=== PATIENT | male | born 1970 | race Caucasian/White ===

== ENCOUNTER 2020-06-08 02:36 | Outpatient (CLI) | payer BC, SELFPAY ==
[2020-06-08 18:24] LABS: SARS-CoV-2 RNA PCR Negative
== END 2020-06-08 02:37 | disposition home or self-care (01) ==
LOC: ANHCOVIDDT 02:37
PROVIDERS: PCP Physician Assistant; Visit Provider Internal Medicine Gastroenterology
DX: Z01.812 Encounter for preprocedural laboratory examination (principal); Z20.828 Contact with and (suspected) exposure to other viral communicable diseases
CPT/HCPCS: 87635; C9803; U0003

== ENCOUNTER 2020-06-22 00:59 | Outpatient (CLI) | payer BC, SELFPAY ==
[2020-06-22 18:39] LABS: SARS-CoV-2 RNA PCR Negative
== END 2020-06-22 01:00 | disposition home or self-care (01) ==
LOC: ANHCOVIDDT 00:59
PROVIDERS: PCP Physician Assistant; Visit Provider Internal Medicine Gastroenterology
DX: Z01.812 Encounter for preprocedural laboratory examination (principal); Z20.828 Contact with and (suspected) exposure to other viral communicable diseases
CPT/HCPCS: 87635; C9803; U0003

== ENCOUNTER 2020-06-24 01:25 | Day surgery (SDC) | payer BC, SELFPAY ==
[2020-06-03 11:48] VITALS: BMI 29.8
--- NOTE | 2020-06-09 14:18 | P.PNAN_ITS ---
Anes - Eval Pre Procedure Procedure: Operation Date: 06/10/20 08:30 Proposed Procedures p Colonoscopy - Sandro Myers MD Date/Time: 06/09/20 14:18 Pre Op Diagnosis: Positive Cologaurd Patient Data Age: 50 Gender: M Height: 1.7 m Weight: 86.36 kg Allergies Allergy/AdvReac Type Severity Reaction Status Date / Time No Known Allergies Allergy Verified 06/03/20 11:46 Home Medications Medication Instructions Recorded Confirmed Type acyclovir 5 % topical cream 1 applic TOPICAL .5XD PRN gm 03/15/20 06/03/20 Hist ory tadalafil 5 mg tablet 5 mg PO DAILY PRN 03/15/20 06/03/20 History ia-jd-RL-vit J-xlfqf-zqb-coQ10 1 cap PO DAILY 06/03/20 06/03/20 History [Daily Multivitamin] valacyclovir See Rx Instructions .ROUTE 06/03/20 06/03/20 History .COMPLEX PRN Patient hx anesthesia problems: none Family hx anesthesia problems: none PMFSH Past Medical History Medical History (Updated 06/09/20 @ 14:18 by Aylin Garner CRNA) Overweight Social History Social History Smoking packs per day: 1 Smoking cigarettes per day: 20.0 Years smoked: 20 Smoking pack-years: 20.00 Smoking status: Former smoker Tobacco type: cigarettes Second hand tobacco smoke exposure: No Smoking end date: 09/09/96 Alcohol intake: current Drinks per week: 0 Substance use: never Substance use type: does not use Spiritual care concerns: No Exam Day of Procedure 06/09/20 14:18
[2020-06-16 14:18] VITALS: BMI 30.4
[2020-06-24 09:47] VITALS: BP 163/86; PULSE 71; RESP 16; TEMP 36; O2SAT 100
[2020-06-24] MEDS: LACTATED RINGERS 1,000 ML 150 ML IV CONT (09:59)
--- NOTE | 2020-06-24 10:15 | WPDANESEPPF ---
Anes - Initial Pre Proc Eval Procedure: Operation Date: 06/24/20 11:00 Proposed Procedures p Colonoscopy - Sandro Myers MD Date/Time: 06/24/20 10:15 Surgeon: Sandro Myers MD Pre Op Diagnosis: Positive Cologaurd Patient Data Age: 50 Gender: M Height: 5 ft 7 in Weight: 89.1 kg Last Vital Signs Temp 96.8 F L 06/24/20 09:47 Pulse 71 06/24/20 09:47 Resp 16 06/24/20 09:47 BP 163/86 H 06/24/20 09:47 Pulse Ox 100 06/24/20 09:47 Allergies Allergy/AdvReac Type Severity Reaction Status Date / Time No Known Allergies Allergy Verified 06/24/20 09:42 Home Medications Medication Instructions Recorded Confirmed Type acyclovir 5 % topical cream 1 applic TOPICAL .5XD PRN gm 03/15/20 06/24/20 History tadalafil 5 mg tablet 5 mg PO DAILY PRN 03/15/20 06/03/20 History ei-in-VB-vit H-dbjdm-[id number]-coQ10 1 cap PO DAILY 06/03/20 06/03/20 History [Daily Multivitamin] valacyclovir See Rx Instructions .ROUTE 06/03/20 06/03/20 History .COMPLEX PRN amoxicillin 500 mg PO TID 06/16/20 06/16/20 History Patient hx anesthesia problems: none Family hx anesthesia problems: none PMFSH Past Medical History Medical History (Updated 06/09/20 @ 14:18 by Aylin Garner CRNA) Overweight Social History Social History Smoking packs per day: 1.5 Smoking cigarettes per day: 30.0 Years smoked: 20 Smoking pack-years: 30.00 Smoking status: Former smoker Tobacco type: cigarettes Second hand tobacco smoke exposure: No Smoking end date: 09/09/96 Alcohol intake: current Drinks per week: 0 Alcohol use details: 1 PER MONTH Substance use: never Substance use type: does not use Gender identity (if verbalized by the patient): Female Spiritual care concerns: No Anes - Eval Final PreProcedure Day of Procedure 06/24/20 10:15 Patient weight: overweight Heart: regular rate and rhythm Lungs: clear to auscultation Airway: Mallampati scale class II Neurological: alert and oriented Last oral intake: >/= 8 hours ASA classification: II Emergent: no Anesthetic plan: proceed Anesthesia type and monitoring: general GIVS and standard monitoring Informed Consent: The patient's anesthetic plan and its attendant risks and benefits were discussed with the patient/family/POA. Questions were solicited and answers provided to the satisfaction of the patient/family/POA.
--- NOTE | 2020-06-24 10:41 | WPDGICN ---
Assessment and Plan Assessment and plan (1) Positive colorectal cancer screening using Cologuard test: Code(s): R19.5 - Other fecal abnormalities Status: Acute Assessment and Plan: Plan is for screening colonoscopy. Further recommendations will be given after endoscopy. GI Consult Note Consult date/time: 06/24/20 10:41 HPI: Brad Garrett is a 50 year old male Seen in evaluation at the request of Dr. Danie Cárdenas and CARISSA Feldman. Patient has a positive screening cologuard test. He states that his current weight appetite bowel movements are normal. He denies abdominal pain he has had no bleeding. His family history is noncontributory. He presents today for colonoscopy. Review of Systems Review of Systems: All systems reviewed & are unremarkable except as noted in HPI and below PMFSH Past Medical History Medical History (Updated 06/24/20 @ 10:43 by Sandro Myers MD) Overweight Social History Social History Smoking packs per day: 1.5 Smoking cigarettes per day: 30.0 Years smoked: 20 Smoking pack-years: 30.00 Smoking status: Former smoker Tobacco type: cigarettes Second hand tobacco smoke exposure: No Smoking end date: 09/09/96 Alcohol intake: current Drinks per week: 0 Alcohol use details: 1 PER MONTH Substance use: never Substance use type: does not use Gender identity (if verbalized by the patient): Female Spiritual care concerns: No Meds Home Medications and Allergies Home Medications Medication Instructions Recorded Confirmed Type acyclovir 5 % topical cream 1 applic TOPICAL .5XD PRN gm 03/15/20 06/24/20 History tadalafil 5 mg tablet 5 mg PO DAILY PRN 03/15/20 06/03/20 History zt-ko-PZ-vit X-udvtt-oea-coQ10 1 cap PO DAILY 06/03/20 06/03/20 History [Daily Multivitamin] valacyclovir See Rx Instructions .ROUTE 06/03/20 06/03/20 History .COMPLEX PRN amoxicillin 500 mg PO TID 06/16/20 06/16/20 History Allergies Allergy/AdvReac Type Severity Reaction Status Date / Time No Known Allergies Allergy Verified 06/24/20 09:42 Vital Signs Vital Signs - 24 hr 06/24/20 09:47 Temperature 96.8 F L Pulse Rate 71 Respiratory Rate 16 Blood Pressure 163/86 H Pulse Oximetry 100 Exam Narrative: Exam Narrative: Physical exam reveals patient to be alert. Vital signs stable. HEENT exam unremarkable. Lungs are clear to auscultation and percussion. Heart is without murmur or extra sounds. Abdominal exam bowel sounds are present soft nontender with no organomegaly. Digital external rectal exam normal.
[2020-06-24 11:15] VITALS: BP 125/82; PULSE 76; RESP 18; O2SAT 94
[2020-06-24 11:25] VITALS: BP 127/90; PULSE 67; RESP 18; O2SAT 97
[2020-06-24 11:35] VITALS: BP 139/89; PULSE 62; RESP 18; O2SAT 97
== END 2020-06-24 12:07 | disposition home or self-care (01) ==
PROVIDERS: PCP Physician Assistant; Visit Provider Internal Medicine Gastroenterology
PROC: 0DJD8ZZ Inspection of Lower Intestinal Tract, Via Natural or Artificial Opening Endoscopic (ICD-10-PCS; CPT 45378; principal; 2020-06-24 11:00)
DX: Z12.11 Encounter for screening for malignant neoplasm of colon (principal); R19.5 Other fecal abnormalities; K64.8 Other hemorrhoids; Z87.891 Personal history of nicotine dependence
CPT/HCPCS: 45378; J2704; J7120

== ENCOUNTER 2024-07-02 10:50 | Outpatient (CLI) | payer BC, SELFPAY ==
--- NOTE | ~2024-07-02 | US_ITS ---
Anterior chest wall ULTRASOUND Ordering provider: Liang Carroll APRN History: . R22.2 - Localized swelling, mass and lump, trunk . Comparison: None. FINDINGS/impression: No definite masses seen. Reviewed, dictated and finalized at location A.
== END 2024-07-02 10:51 | disposition home or self-care (01) ==
LOC: MICIMG 10:51
PROVIDERS: PCP Nurse Practitioner; Visit Provider Nurse Practitioner
DX: R22.2 Localized swelling, mass and lump, trunk (principal)
CPT/HCPCS: 76604

== ENCOUNTER 2025-03-16 08:54 | Outpatient (CLI) | payer BC, SELFPAY ==
--- NOTE | 2025-03-31 13:01 | WPDHOLTEREM ---
Holter/Event Monitor Holter/Event Monitor Date of procedure: 03/31/25 Holter/Event Procedure: 3-7 Day Holter Monitor Indications: Palpitations Conclusion: 1. 3 days holter monitor on 03/16/25. 2. Predominant rhythm is atrial fibrillation at 52% burden. HR range 61-192 bpm with average 113 bpm. In sinus rhythm HR range 51-115 bpm with average at 64 bpm. 3. There are are rare premature supraventricular complexes, rare supraventricular couplets, and rare supraventricular triplets. The longest atrial fibrillation is 1 day and 13 hours. 4. There are rare premature ventricular complexes and rare ventricular couplets. No ventricular tachycardia. 5. No significant pauses greater than 3 seconds. 6. Patient reports 3 episodes of symptoms of lightheadedness, shortness of breath, irregular beats, fluttering, 60-79 bpm with 2 episodes with PAC's. Patient reports 4 episodes of symptoms of fluttering, shortness of breath, irregular beats which demonstrate atrial fibrillation, HR range 76-184 bpm.
== END 2025-03-16 08:55 | disposition home or self-care (01) ==
PROVIDERS: PCP Nurse Practitioner; Visit Provider Nurse Practitioner
DX: R00.2 Palpitations (principal)
CPT/HCPCS: 93242